=== PATIENT | male | born 1945 | race Asian ===

== ENCOUNTER 2021-08-01 22:16 | Emergency (ER) | payer OTHER ==
[2021-08-01 22:31] VITALS: TEMP 99.3; BMI 26.1
[2021-08-01] MEDS ORDERED: FLUORESCEIN NA 1 EA STRIP OS ONE (23:25)
[2021-08-01] MEDS ORDERED: TETRACAINE 0.5% HCL 0.6ML DROPPER.BOTTLE OS ONE (23:26)
[2021-08-01] MEDS ORDERED: valACYclovir HCL 1000 MG TABLET PO ONE (23:27)
[2021-08-01] MEDS ORDERED: CARVEDILOL 6.25 MG TABLET (FP) PO ONE (23:32)
[2021-08-02] MEDS ORDERED: TETRACAINE 0.5% OPHTH SOLN 2 ML BOTTLE ONE (00:01)
[2021-08-02] MEDS ORDERED: CARVEDILOL 3.125 MG TABLET (FP) ONE (00:01)
[2021-08-02] MEDS ORDERED: FLUORESCEIN NA 1 EA STRIP ONE (00:02)
[2021-08-02] MEDS ORDERED: valACYclovir HCL 500 MG TABLET (FP) ONE (00:02)
[2021-08-02 01:36] VITALS: BP 163/85; PULSE 84
== END 2021-08-02 01:36 | disposition home or self-care (01) ==
LOC: JER 22:16
DX: B02.9 Zoster without complications (principal)
CPT/HCPCS: 99283-25